=== PATIENT | female | born 1945 | race Caucasian/White ===

== ENCOUNTER 2019-05-25 12:00 | Inpatient (IN) | payer OTHER ==
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
[2019-05-25] MEDS ORDERED: SODIUM CHLORIDE 0.9% 500 ML INFUS.BAG IV ONE (12:45)
[2019-05-25 13:38] LABS: BASO % 0.3 % (0-2.0); EOS % 1.3 % (0-4.5); HEMATOCRIT 33.9 % (32.4-45.2); HEMOGLOBIN 11.7 GM/dL (10.7-15.3); LYMPH % 18.1 % (8-40); MCH 29.7 pg (25.7-33.7); MCHC 34.5 g/dl (32.0-36.0); MEAN CELL VOLUME 86.1 fl (80-96); MEAN PLT VOLUME 10.1 fl (7.5-11.1); MONO % 6.1 % (3.8-10.2); NEUT % 74.2 % (42.8-82.8); PLATELET COUNT 192 K/MM3 (134-434); RBC 3.94 M/mm3 (3.60-5.2); RDW 13.2 % (11.6-15.6); WHITE BLOOD COUNT 6.7 K/mm3 (4.0-10.0)
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
[2019-05-25 14:14] LABS: BILIRUBIN,TOTAL 0.4 mg/dL (0.2-1); BLOOD UREA NITROGEN 15.2 mg/dL (7-18); CALCIUM 9.6 mg/dL (8.5-10.1); CREATININE 0.9 mg/dL (0.55-1.3); MAGNESIUM 1.6 mg/dL (1.8-2.4); PHOSPHOROUS 2.6 mg/dL (2.5-4.9); POTASSIUM 3.7 mmol/L (3.5-5.1)
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
[2019-05-25] MEDS ORDERED: ACETAMINOPHEN 325 MG TABLET (FP) PO PRN (16:52)
[2019-05-25] MEDS ORDERED: SODIUM CHLORIDE 1,000 ML IV SCH (17:00)
--- NOTE | 2019-05-25 17:04 | EKG ---
Test Reason : Blood Pressure : / mmHG Vent. Rate : 075 BPM Atrial Rate : 075 BPM P-R Int : 200 ms QRS Dur : 148 ms QT Int : 420 ms P-R-T Axes : 025 251 035 degrees QTc Int : 469 ms POOR DATA QUALITY, INTERPRETATION MAY BE ADVERSELY AFFECTED NORMAL SINUS RHYTHM RIGHT BUNDLE BRANCH BLOCK POSSIBLE LATERAL INFARCT (CITED ON OR BEFORE 16-OCT-2014) ABNORMAL ECG WHEN COMPARED WITH ECG OF 16-OCT-2014 22:23, NO SIGNIFICANT CHANGE WAS FOUND Confirmed by MD Rickey, Ye ([id number]) on 05/25/2019 5:04:13 PM Referred By: Confirmed By:Ye Lang MD
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
[2019-05-25] MEDS: HEPARIN NA (PORCINE) 5,000 UNITS/ML 1ML VIAL SQ SCH (21:56)
[2019-05-25] MEDS: ATORVASTATIN CA 80 MG TABLET (FP) PO SCH (21:56)
[2019-05-25] MEDS: CARBIDOPA/LEVODOPA 10/100 TABLET (FP) PO SCH (21:56)
[2019-05-25] MEDS: QUINAPRIL HCL 20 MG TABLET (FP) PO SCH (21:56)
[2019-05-25] MEDS: HYDROCHLOROTHIAZIDE 12.5 MG CAPSULE (FP) PO SCH (21:56)
[2019-05-25 21:58] LABS: EPI CELLS 3.3 /HPF (0-5/HPF); HYALINE CASTS 1 /lpf (0-8); URINE APPEARANCE CLEAR; URINE BACTERIA 43.3 /hpf (NEGATIVE); URINE BILIRUBIN NEGATIVE (NEGATIVE); URINE COLOR YELLOW; URINE GLUCOSE (UA) 1+ (NEGATIVE); URINE KETONE NEGATIVE (NEGATIVE); URINE LEUK ESTERASE 2+ (NEGATIVE); URINE NITRITE NEGATIVE (NEGATIVE); URINE PROTEIN NEGATIVE (NEGATIVE); URINE RBC 2 /hpf (0-4); URINE UROBILINOGEN 0.2 mg/dL (0.2-1.0); URINE WBC 7 /hpf (0-5)
[2019-05-25] MEDS ORDERED: PATIENT'S OWN MEDICATION (NON-FORMULARY) (Quinapril/Hydrochlorothiazide [Accuretic 20-12.5 PO SCH (22:00)
[2019-05-26] MEDS ORDERED: MAG HYDROX/AL HYDROX/SIMETH 30 ML UNIT-DOSE CUP PO ONE (02:59)
[2019-05-26] MEDS: CARBIDOPA/LEVODOPA 10/100 TABLET (FP) PO SCH ×3 (05:27→21:48)
[2019-05-26 07:07] LABS: BASO % 0.5 % (0-2.0); EOS % 2.8 % (0-4.5); HEMATOCRIT 31.7 % (32.4-45.2); HEMOGLOBIN 11.1 GM/dL (10.7-15.3); LYMPH % 37.7 % (8-40); MCH 30.2 pg (25.7-33.7); MCHC 35.2 g/dl (32.0-36.0); MEAN CELL VOLUME 85.9 fl (80-96); MEAN PLT VOLUME 10.1 fl (7.5-11.1); MONO % 6.4 % (3.8-10.2); NEUT % 52.6 % (42.8-82.8); PLATELET COUNT 181 K/MM3 (134-434); RBC 3.69 M/mm3 (3.60-5.2); RDW 13.2 % (11.6-15.6); WHITE BLOOD COUNT 5.6 K/mm3 (4.0-10.0)
[2019-05-26 07:39] LABS: ALBUMIN 3.6 g/dl (3.4-5.0); BILIRUBIN,TOTAL 0.4 mg/dL (0.2-1); BLOOD UREA NITROGEN 8.2 mg/dL (7-18); CALCIUM 9.2 mg/dL (8.5-10.1); CREATININE 0.8 mg/dL (0.55-1.3); MAGNESIUM 1.6 mg/dL (1.8-2.4); PHOSPHOROUS 2.6 mg/dL (2.5-4.9); POTASSIUM 3.5 mmol/L (3.5-5.1); TOT PROT 6.4 g/dl (6.4-8.2)
[2019-05-26] MEDS ORDERED: MAG HYDROX/AL HYDROX/SIMETH 30 ML UNIT-DOSE CUP PO PRN (07:56)
[2019-05-26] MEDS ORDERED: ONDANSETRON 4 MG TABLET PO ONE (08:00)
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
[2019-05-26] MEDS: HEPARIN NA (PORCINE) 5,000 UNITS/ML 1ML VIAL SQ SCH ×2 (09:23→21:48)
[2019-05-26] MEDS: RANITIDINE HCL 150 MG TABLET (FP) PO SCH (09:23)
[2019-05-26] MEDS: SERTRALINE HCL 50 MG TABLET (FP) PO SCH (09:23)
[2019-05-26] MEDS: QUINAPRIL HCL 20 MG TABLET (FP) PO SCH ×2 (09:24→21:48)
[2019-05-26] MEDS: HYDROCHLOROTHIAZIDE 12.5 MG CAPSULE (FP) PO SCH ×2 (09:25→21:48)
--- NOTE | 2019-05-26 11:49 | EKG ---
Test Reason : Blood Pressure : / mmHG Vent. Rate : 077 BPM Atrial Rate : 077 BPM P-R Int : 216 ms QRS Dur : 088 ms QT Int : 394 ms P-R-T Axes : 056 270 034 degrees QTc Int : 445 ms POOR DATA QUALITY, INTERPRETATION MAY BE ADVERSELY AFFECTED SINUS RHYTHM WITH 1ST DEGREE A-V BLOCK WITH FUSION COMPLEXES RIGHT VENTRICULAR HYPERTROPHY POSSIBLE LATERAL INFARCT (CITED ON OR BEFORE 16-OCT-2014) ABNORMAL ECG WHEN COMPARED WITH ECG OF 25-MAY-2019 12:40, FUSION COMPLEXES ARE NOW PRESENT RIGHT BUNDLE BRANCH BLOCK IS NO LONGER PRESENT Confirmed by ALEJANDRA REEVES, NEVA ([id number]) on 05/26/2019 11:49:38 AM Referred By: FARIHA MASONGUTHRIE [facility] Confirmed By:NEVA ROBERTS MD
[2019-05-26] MEDS ORDERED: ONDANSETRON 4 MG/2 ML VIAL IVPB PRN (13:13)
[2019-05-26] MEDS ORDERED: PT OWN MED DRAWER 7, Y5N ONE ×2 (13:25→14:04)
--- NOTE | 2019-05-26 17:33 | PN ---
Teaching Attending Note Name of Resident: Anibal Loja ATTENDING PHYSICIAN STATEMENT I saw and evaluated the patient. I reviewed the resident's note and discussed the case with the resident. I agree with the resident's findings and plan as documented with exceptions below. SUBJECTIVE: patient seen and examined, reports nausea, dyspepsia, anxiety, not liking the food. vague constitutional symptoms. OBJECTIVE: Vital Signs Period Temp Pulse Resp BP Sys/Pope Pulse Ox Last 24 Hr 97.7 F-98.7 F 69-91 16-20 146-176/74-91 96-98 Intake & Output 05/23/19 05/24/19 05/25/19 05/26/19 23:59 23:59 23:59 23:59 Intake Total 1200 900 Balance 1200 900 Weight 162 lb 12.8 oz general: lying in bed in no acute distress Chest; Decreased effort, no rales or wheezing Abdomen:soft, obese, NT Extremities: no edema Home Medications Medication Instructions Recorded Atorvastatin Ca [Lipitor -] 80 mg PO HS 10/16/14 Carbidopa/Levodopa [Carbidopa-Levo 1 each PO TID 10/16/14 10-100 Tab] Metoprolol Succinate [Toprol XL -] 100 mg PO DAILY 10/16/14 [place]-3 Fatty Acids [Fish Oil] 1,200 mg PO DAILY 10/16/14 Quinapril/Hydrochlorothiazide 1 each PO BID 10/16/14 [Accuretic 20-12.5 mg Tablet] Sertraline HCl [Zoloft] 200 mg PO DAILY 10/16/14 Diazepam 10 mg PO BID 05/25/19 Active Medications Acetaminophen (Tylenol -) 325 mg PO Q4H PRN PRN Reason: HEADACHE Al Hydroxide/Mg Hydroxide (Mylanta Oral Suspension -) 30 ml PO Q6H PRN PRN Reason: DYSPEPSIA Atorvastatin Calcium (Lipitor -) 80 mg PO HS [facility] Last Admin: 05/25/19 21:56 Dose: 80 mg Carbidopa/Levodopa (Sinemet 10/100 -) 1 each PO TID [facility] Last Admin: 05/26/19 14:03 Dose: 1 each Diazepam (Valium -) 10 mg PO BID [facility] Heparin Sodium (Porcine) (Heparin -) 5,000 unit SQ BID [facility] Last Admin: 05/26/19 09:23 Dose: 5,000 unit Hydrochlorothiazide (Hctz -) 12.5 mg PO BID [facility] Last Admin: 05/26/19 09:25 Dose: 12.5 mg Metoprolol Succinate (Toprol Xl -) 100 mg PO DAILY [facility] Last Admin: 05/26/19 09:23 Dose: 100 mg Ondansetron HCl (Zofran Injection) 8 mg IVPB Q6H PRN PRN Reason: NAUSEA Last Admin: 05/26/19 13:28 Dose: 8 mg Quinapril HCl (Accupril -) 20 mg PO BID [facility] Last Admin: 05/26/19 09:24 Dose: 20 mg Ranitidine HCl (Zantac -) 150 mg PO DAILY [facility] Last Admin: 05/26/19 09:23 Dose: 150 mg Sertraline HCl (Zoloft -) 200 mg PO DAILY [facility] Last Admin: 05/26/19 09:23 Dose: 200 mg Laboratory Results - last 24 hr 05/25/19 05/26/19 05/26/19 21:40 06:10 06:10 WBC 5.6 RBC 3.69 Hgb 11.1 Hct 31.7 L MCV 85.9 MCH 30.2 MCHC 35.2 RDW 13.2 Plt Count 181 MPV 10.1 Absolute Neuts (auto) 2.9 Neutrophils % 52.6 D Lymphocytes % 37.7 D Monocytes % 6.4 Eosinophils % 2.8 D Basophils % 0.5 Nucleated RBC % 0 PTT (Actin FS) 32.3 Sodium Potassium Chloride Carbon Dioxide Anion Gap BUN Creatinine Est GFR (CKD-EPI)AfAm Est GFR (CKD-EPI)NonAf Random Glucose Calcium Phosphorus Magnesium Total Bilirubin AST ALT Alkaline Phosphatase Total Protein Albumin TSH Urine Color Yellow Urine Appearance Clear Urine pH 5.0 Ur Specific [place] 1.011 Urine Protein Negative Urine Glucose (UA) 1+ H Urine Ketones Negative Urine Blood Negative Urine Nitrite Negative Urine Bilirubin Negative Urine Urobilinogen 0.2 Ur Leukocyte Esterase 2+ H Urine WBC (Auto) 7 Urine RBC (Auto) 2 Urine Casts (Auto) 1 U Epithel Cells (Auto) 3.3 Urine Bacteria (Auto) 43.3 Urine Yeast (Auto) None 05/26/19 06:10 WBC RBC Hgb Hct MCV MCH MCHC RDW Plt Count MPV Absolute Neuts (auto) Neutrophils % Lymphocytes % Monocytes % Eosinophils % Basophils % Nucleated RBC % PTT (Actin FS) Sodium 141 Potassium 3.5 Chloride 105 Carbon Dioxide 26 Anion Gap 9 BUN 8.2 Creatinine 0.8 Est GFR (CKD-EPI)AfAm 83.59 Est GFR (CKD-EPI)NonAf 72.12 Random Glucose 105 Calcium 9.2 Phosphorus 2.6 Magnesium 1.6 L Total Bilirubin 0.4 AST 17 ALT 16 Alkaline Phosphatase 108 Total Protein 6.4 Albumin 3.6 TSH 1.48 Urine Color Urine Appearance Urine pH Ur Specific [place] Urine Protein Urine Glucose (UA) Urine Ketones Urine Blood Urine Nitrite Urine Bilirubin Urine Urobilinogen Ur Leukocyte Esterase Urine WBC (Auto) Urine RBC (Auto) Urine Casts (Auto) U Epithel Cells (Auto) Urine Bacteria (Auto) Urine Yeast (Auto) CT head/C-spine results reviewed ASSESSMENT AND PLAN: 73 yof with PMhx of HTN, HLD, parkinson's disease, depression, anxiety admitted with vague constitutional symptoms,concerns for poor oral intake, and failure to thrive -Depression -Anxiety -Concerns for failure to thrive -HTN -HLD -Parkinson's disease Plan: Resume valium. tolerating po well. D/c IVF. Continue home meds Social work input noted psych consult. D/c home vs SNF when disposition arranged discussed with patient and daughter.
--- NOTE | 2019-05-26 19:13 | CON.PSY ---
Psychiatry Consult Chief Complaint: i have not been eating well, i felt dizzy but I am feeling ok now. Patient with a life long History of Major DEpressive disorder. Known to me from previous admissions. Symptoms: reports: Depressed Mood, Anhedonia - Previous Psychiatric Treatment Outpatient: Less than 6 mos ago Inpatient: One prior admission - Previous Substance Abuse Treatment Outpatient: None Inpatient: None - Reason for Previous Treatment Reason for Previous Treatment: Major Depression - Current Medications Current Medications: Active Medications Acetaminophen (Tylenol -) 325 mg PO Q4H PRN PRN Reason: HEADACHE Al Hydroxide/Mg Hydroxide (Mylanta Oral Suspension -) 30 ml PO Q6H PRN PRN Reason: DYSPEPSIA Atorvastatin Calcium (Lipitor -) 80 mg PO HS [facility] Last Admin: 05/25/19 21:56 Dose: 80 mg Carbidopa/Levodopa (Sinemet 10/100 -) 1 each PO TID [facility] Last Admin: 05/26/19 14:03 Dose: 1 each Diazepam (Valium -) 10 mg PO BID [facility] Heparin Sodium (Porcine) (Heparin -) 5,000 unit SQ BID [facility] Last Admin: 05/26/19 09:23 Dose: 5,000 unit Hydrochlorothiazide (Hctz -) 12.5 mg PO BID [facility] Last Admin: 05/26/19 09:25 Dose: 12.5 mg Metoprolol Succinate (Toprol Xl -) 100 mg PO DAILY [facility] Last Admin: 05/26/19 09:23 Dose: 100 mg Ondansetron HCl (Zofran Injection) 8 mg IVPB Q6H PRN PRN Reason: NAUSEA Last Admin: 05/26/19 13:28 Dose: 8 mg Quinapril HCl (Accupril -) 20 mg PO BID [facility] Last Admin: 05/26/19 09:24 Dose: 20 mg Ranitidine HCl (Zantac -) 150 mg PO DAILY [facility] Last Admin: 05/26/19 09:23 Dose: 150 mg Sertraline HCl (Zoloft -) 200 mg PO DAILY [facility] Last Admin: 05/26/19 09:23 Dose: 200 mg - Allergies Allergies: Allergies Allergy/AdvReac Type Severity Reaction Status Date / Time esomeprazole magnesium Allergy Verified 10/16/14 21:02 [From Nexium] Penicillins Allergy Verified 10/16/14 21:02 - Current Living Status Usual Living Arrangement: With Child - Current Mental Status Evaluation Appearance: Disheveled Attitude: Guarded - Affect Affect: Constrictive Appropriateness: Appropriate to Content - Mood Mood: Depressed - Speech/Language Expressive: Coherent - Psychomotor Activity Psychomotor Activity: Slowed - Thought Process Thought Process: Intact - Thought Content Hallucinations: Absent Delusions: Absent - Self Perception Self Perception: No Impairment - Cognition Attention: Alert Orientation: Time Memory, Short Term: 3/3 Memory, Remote with Promptin/3 - Concentration Serial Sevens Intact: No Simple Calculations Intact: Yes - Abstraction Proverb Interpretation: Intact Judgement: Intact - Insight Insight: Intact - Impulse Control Impulse Control: Good Control - Suicidal Ideation Suicidal Ideation: No - Homicidal Ideation Homicidal Ideation: No Assessment/Plan 1) Continue with [facility] meds. 2) Patient has the Mental Capacity to make decisions at this time. 3) Contact should you need more info on the patient.
[2019-05-26 20:04] VITALS: BMI 26.2
[2019-05-26] MEDS: ATORVASTATIN CA 80 MG TABLET (FP) PO SCH (21:48)
[2019-05-26] MEDS: diazePAM 5 MG TABLET PO SCH (21:48)
[2019-05-27] MEDS: CARBIDOPA/LEVODOPA 10/100 TABLET (FP) PO SCH ×2 (06:09→14:42)
[2019-05-27 07:40] LABS: BASO % 0.7 % (0-2.0); EOS % 2.7 % (0-4.5); HEMATOCRIT 31.1 % (32.4-45.2); HEMOGLOBIN 10.8 GM/dL (10.7-15.3); LYMPH % 32.9 % (8-40); MCHC 34.8 g/dl (32.0-36.0); MEAN CELL VOLUME 86.2 fl (80-96); MEAN PLT VOLUME 9.8 fl (7.5-11.1); MONO % 7.3 % (3.8-10.2); NEUT % 56.4 % (42.8-82.8); PLATELET COUNT 184 K/MM3 (134-434); RBC 3.61 M/mm3 (3.60-5.2)
[2019-05-27 08:05] LABS: MAGNESIUM 1.7 mg/dL (1.8-2.4); PHOSPHOROUS 3.5 mg/dL (2.5-4.9)
[2019-05-27] MEDS: HEPARIN NA (PORCINE) 5,000 UNITS/ML 1ML VIAL SQ SCH (09:56)
[2019-05-27] MEDS: SERTRALINE HCL 50 MG TABLET (FP) PO SCH (09:56)
[2019-05-27] MEDS: HYDROCHLOROTHIAZIDE 12.5 MG CAPSULE (FP) PO SCH (09:58)
[2019-05-27] MEDS: RANITIDINE HCL 150 MG TABLET (FP) PO SCH (09:58)
[2019-05-27] MEDS: diazePAM 5 MG TABLET PO SCH (09:58)
[2019-05-27] MEDS ORDERED: PT OWN MED DRAWER 7, Y5N ONE ×3 (10:02→14:30)
[2019-05-27] MEDS: QUINAPRIL HCL 20 MG TABLET (FP) PO SCH (10:04)
[2019-05-27] MEDS ORDERED: MAGNESIUM SULF 50% (8.12 MEQ/2 ML-1 GM VIAL) IVPB ONE (10:19)
--- NOTE | 2019-05-27 11:13 | PN ---
Teaching Attending Note Name of Resident: Anibal Loja ATTENDING PHYSICIAN STATEMENT I saw and evaluated the patient. I reviewed the resident's note and discussed the case with the resident. I agree with the resident's findings and plan as documented with exceptions below. SUBJECTIVE: Patient seen and examined. Taking PO, no complaints. OBJECTIVE: Vital Signs Period Temp Pulse Resp BP Sys/Pope Pulse Ox Last 24 Hr 98.1 F-98.6 F 63-73 18-20 120-146/60-82 96 Intake & Output 05/24/19 05/25/19 05/26/19 05/27/19 23:59 23:59 23:59 23:59 Intake Total 1200 1225 Balance 1200 1225 Weight 162 lb 12.8 oz 162 lb 12.8 oz General sitting in bed in no acute distress Chest: decreased effort, no rales or wheezing Abdomen: soft, obese, NT Extremities: no edema Neck: soft, supple Home Medications Medication Instructions Recorded Atorvastatin Ca [Lipitor -] 80 mg PO HS 10/16/14 Carbidopa/Levodopa [Carbidopa-Levo 1 each PO TID 10/16/14 10-100 Tab] Metoprolol Succinate [Toprol XL -] 100 mg PO DAILY 10/16/14 [place]-3 Fatty Acids [Fish Oil] 1,200 mg PO DAILY 10/16/14 Quinapril/Hydrochlorothiazide 1 each PO BID 10/16/14 [Accuretic 20-12.5 mg Tablet] Sertraline HCl [Zoloft] 200 mg PO DAILY 10/16/14 Diazepam 10 mg PO QID PRN 05/25/19 Active Medications Acetaminophen (Tylenol -) 325 mg PO Q4H PRN PRN Reason: HEADACHE Last Admin: 05/27/19 10:56 Dose: 325 mg Al Hydroxide/Mg Hydroxide (Mylanta Oral Suspension -) 30 ml PO Q6H PRN PRN Reason: DYSPEPSIA Atorvastatin Calcium (Lipitor -) 80 mg PO HS [facility] Last Admin: 05/26/19 21:48 Dose: 80 mg Carbidopa/Levodopa (Sinemet 10/100 -) 1 each PO TID [facility] Last Admin: 05/27/19 06:09 Dose: 1 each Diazepam (Valium -) 10 mg PO BID [facility] Last Admin: 05/27/19 09:58 Dose: 10 mg Heparin Sodium (Porcine) (Heparin -) 5,000 unit SQ BID [facility] Last Admin: 05/27/19 09:56 Dose: 5,000 unit Hydrochlorothiazide (Hctz -) 12.5 mg PO BID [facility] Last Admin: 05/27/19 09:58 Dose: 12.5 mg Metoprolol Succinate (Toprol Xl -) 100 mg PO DAILY [facility] Last Admin: 05/27/19 09:58 Dose: 100 mg Ondansetron HCl (Zofran Injection) 8 mg IVPB Q6H PRN PRN Reason: NAUSEA Last Admin: 05/26/19 13:28 Dose: 8 mg Quinapril HCl (Accupril -) 20 mg PO BID [facility] Last Admin: 05/27/19 10:04 Dose: 20 mg Ranitidine HCl (Zantac -) 150 mg PO DAILY [facility] Last Admin: 05/27/19 09:58 Dose: 150 mg Sertraline HCl (Zoloft -) 200 mg PO DAILY [facility] Last Admin: 05/27/19 09:56 Dose: 200 mg Laboratory Results - last 24 hr 05/27/19 05/27/19 07:05 07:05 WBC 6.0 RBC 3.61 Hgb 10.8 Hct 31.1 L MCV 86.2 MCH 30.0 MCHC 34.8 RDW 13.0 Plt Count 184 MPV 9.8 Absolute Neuts (auto) 3.4 Neutrophils % 56.4 Lymphocytes % 32.9 Monocytes % 7.3 Eosinophils % 2.7 Basophils % 0.7 Nucleated RBC % 0 Phosphorus 3.5 Magnesium 1.7 L ASSESSMENT AND PLAN: 73 yof with PMhx of HTN, HLD, parkinson's disease, depression, anxiety admitted with vague constitutional symptoms,concerns for poor oral intake, and failure to thrive -Depression -Anxiety -Concerns for failure to thrive -HTN -HLD -Parkinson's disease Plan: Doing well Psych input noted PT eval noted Discussed with patient, to talk to social work and decide on SNF vs home with services Plan for d/c later today pending above Discussed with patient, daughter at bedside and social work.
[2019-05-27] MEDS ORDERED: diazePAM 5 MG TABLET PO PRN (14:12)
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
[2019-05-27 15:45] VITALS: BP 136/75; PULSE 65; TEMP 99
== END 2019-05-27 16:15 | disposition home health service (06) | DRG 641 ==
LOC: JER 12:00 → JERBED 15:40 → J5S 20:03
PROVIDERS: ADMIT Internal Medicine; ATTEND Hospitalist
DX: R62.7 Adult failure to thrive (principal); T74.91XA Unspecified adult maltreatment, confirmed, initial encounter; E86.0 Dehydration; E83.42 Hypomagnesemia; I10 Essential (primary) hypertension; Z68.26 Body mass index [BMI] 26.0-26.9, adult; E78.5 Hyperlipidemia, unspecified; G20 Parkinson's disease; F02.80 Dementia in other diseases classified elsewhere, unspecified severity, without behavioral disturbance, psychotic disturbance, mood disturbance, and anxiety; F41.9 Anxiety disorder, unspecified; F32.9 Major depressive disorder, single episode, unspecified; M19.90 Unspecified osteoarthritis, unspecified site; M47.9 Spondylosis, unspecified; R29.6 Repeated falls; Z74.01 Bed confinement status; Y08.89XA Assault by other specified means, initial encounter; Y07.499 Other family member, perpetrator of maltreatment and neglect; Z88.0 Allergy status to penicillin
CPT/HCPCS: 36415; 70450-TC; 72125-TC; 80053; 81003; 82550; 83735; 84100; 84443; 84484; 85025; 85730; 87086; 93005; 93010; 97116-GP; 97162-GP; 99284-25; J1644; J7030